=== PATIENT | female | born 1985 | race American Indian/Alaskan Native ===

== ENCOUNTER 2020-10-24 10:32 | Outpatient (CLI) | payer OTHER ==
--- NOTE | 2020-10-24 13:59 | Fluoroscopy Report ---
UPPER GI HISTORY: FUNCTIONAL DYSPEPSIA. TECHNIQUE: Single and double contrast barium technique utilized to evaluate the esophagus, stomach, and duodenal C-loop. FINDINGS: To begin the exam, swallowing was evaluated in the lateral position under direct fluorosco py. Swallowing was normal. No mucosal irregularity, mass, mass effect, or critical stenosis. There were no abnormal tertiary c ontractions as seen with dysmotility. One episode of gastroesophageal reflux to the proximal esophagu s was witnessed during this exam. IMPRESSION: Mild gastroesophageal reflux was witnessed. No mucosal abnormality. Normal anatomy. Fluoroscopic time: 3.3 minutes Number of fluoroscopic images: 19 Signer Name: Scar Corley Jr, MD Signed: 10/24/2020 1:55 PM Workstation Name: [id number]
== END 2020-10-24 10:33 | disposition home or self-care (01) ==
LOC: FLUORO 10:32
PROVIDERS: ATTEND Surgery
DX: K21.9 Gastro-esophageal reflux disease without esophagitis (principal)
CPT/HCPCS: 74246

== ENCOUNTER 2020-11-13 09:46 | Outpatient (CLI) | payer OTHER ==
[2020-11-13 10:15] LABS: Basophils % (Auto) 0.4 % (0.0-1.8); Eosinophils # (Auto) 0.1 K/mm3 (0.0-0.4); Eosinophils % (Auto) 1.8 % (0.0-4.3); Hematocrit 36.6 % (30.3-42.9); Lymphocytes % (Auto) 42.8 % (13.4-35.0); Mean Corpuscular HGB Conc 33 % (30-34); Mean Corpuscular Volume 79 fl (79-97); Monocytes # (Auto) 0.4 K/mm3 (0.0-0.8); Monocytes % (Auto) 7.5 % (0.0-7.3); Platelet Count 287 K/mm3 (140-440); Red Blood Count 4.62 M/mm3 (3.65-5.03)
[2020-11-13 10:42] LABS: Alanine Aminotransferase 9 units/L (7-56); Blood Urea Nitrogen 6 mg/dL (7-17); Calcium 8.8 mg/dL (8.4-10.2); HDL Cholesterol 44 mg/dL (40-59); Hemolysis Index 0; Iron 33 ug/dL (37-170); LDL Cholesterol,Direct 97 mg/dL (50-130); Total Iron Binding Capacity 328 mcg/dL (250-450)
[2020-11-13 11:05] LABS: BUN/Creatinine Ratio 10
== END 2020-11-13 09:47 | disposition home or self-care (01) ==
LOC: LAB 09:46
PROVIDERS: ATTEND Surgery
DX: E66.01 Morbid (severe) obesity due to excess calories (principal); K30 Functional dyspepsia; E11.9 Type 2 diabetes mellitus without complications
CPT/HCPCS: 36415; 80053; 80061; 82607; 82728; 83036; 83550; 84443; 85025

== ENCOUNTER 2020-12-10 08:14 | Outpatient (CLI) | payer OTHER ==
--- NOTE | 2020-12-11 02:43 | Treadmill Report ---
TREADMILL STRESS TEST REFERRING PHYSICIAN: Gladys Nielsen MD PROTOCOL: The patient was brought to the stress lab in a postabsorptive state as elective outpatient. Baseline blood pressure is 125/64. Baseline heart rate is 80. The patient exercised on a standard Edgard protocol to achieve 7-1/2 minutes and a peak heart rate of 162. Baseline EKG reveals normal sinus rhythm, normal axis, no acute ST segment shifts. There were no diagnostic ST changes, arrhythmias or chest pain noted during stress or recovery. Peak blood pressure is 160/80. No symptoms during recovery. CONCLUSIONS: 1. Normal exercise stress test without evidence of diagnostic ST changes, arrhythmias or chest pain during stress or recovery. Average exercise tolerance. 2. Appropriate heart rate/blood pressure response in recovery. JOB# [id number]
== END 2020-12-10 08:15 | disposition home or self-care (01) ==
LOC: CARD 08:14
PROVIDERS: ATTEND Surgery
DX: E66.01 Morbid (severe) obesity due to excess calories (principal)
CPT/HCPCS: 93005; 93017

== ENCOUNTER 2020-12-30 08:07 | Day surgery (SDC) | payer OTHER ==
[~2020-12-30 08:07] MED LIST: SODIUM CHLORIDE 0.9% 1000 ML 1,000 ML IV SCH
--- NOTE | 2020-12-30 08:45 | Discharge Summary ---
Providers - Providers Date of Admission: 12/30/2020 Date of discharge: 12/30/20 Attending physician: MADDIE BUSTOS MD Primary care physician: LEANNA CA Hospitalization Reason for admission: egd for pre-op bariatruc surgery Condition: Good Procedures: egd w/ bx Hospital course: Pt presented for a pre-op EGD as part of planning for up coming bariatric surgery. Procedure was uneventful and pt recovered well and was discharged to home. Disposition: DC- TO HOME OR SELFCARE Final Discharge Diagnosis (Prints w/discharge instructions): morbid obesity, dyspepsia Core Measure Documentation - Palliative Care Palliative Care/ Comfort Measures: Not Applicable - Core Measures Any of the following diagnoses?: none Exam - Physical Exam Narrative exam: unchanged from pre-op Plan Diet: low carbohydrate Follow up with: LEANNA CA MD [Primary Care Provider] - 7 Days
--- NOTE | 2020-12-30 08:46 | Operative Report ---
Operative Report Operative Report: DATE: 12/30/2020 SURGERY: Upper endoscopy. SURGEON: Gladys Nielsen M.D. PROCEDURE: EGD with biopsy PRE OP DX: morbid obesity, GERD POST OP DX: morbid obesity, GERD, gastritis TYPE OF ANESTHESIA: MAC. ESTIMATED BLOOD LOSS: None. COMPLICATIONS: None. SPECIMENS REMOVED: antral biopsy FINDINGS: 1. Small hiatal hernia. 2. gastritis INDICATIONS:INDICATION FOR PROCEDURE: Patient is a 35-year-old female with a long history of morbid obesity. She is planned to have a weight loss procedure and is here for preoperative planning EGD. PROCEDURE DETAILS: After consent was reviewed, patient was taken back to the operating room where patient was placed in the left lateral decubitus position and a bite block was placed in the mouth. After a time-out was called, MAC anesthesia was initiated. I then passed the endoscope into her oropharynx, into her esophagus, visualized the entire esophagus, which was all within normal limits. Z-line was noted to about 35 cm from incisors. I then visualized the stomach and the first portion of the duodenum and there were no abnormalities I could clearly visualize except for antral gastritis. A cold forceps biopsy of the antrum was taken and will be sent to pathology to evaluate for H.pylori. I then retroflexed the scope in the stomach and visualized the hiatus and I could see a small hiatal hernia. I then desufflated the stomach and removed the endoscope. Patient tolerated procedure well and was transferred to recovery room in good and stable condition.
--- NOTE | 2020-12-30 09:12 | Anesthesia Day of Surgery ---
Anesthesia Day of Surgery - Day of Surgery Patient Examined: Yes Patient H&P Reviewed: Yes Patient is NPO: Yes
--- NOTE | 2020-12-30 09:13 | Anesthesia Consultation ---
Anesthesia Consult and Med Hx Date of service: 12/30/20 - Airway Anesthetic Teeth Evaluation: Good ROM Head & Neck: Adequate Mental/Hyoid Distance: Adequate Mallampati Class: Class II Intubation Access Assessment: Good - Pre-Operative Health Status ASA Pre-Surgery Classification: ASA3 Proposed Anesthetic Plan: MAC - Pulmonary Hx Respiratory Symptoms: No - Cardiovascular System Hx Hypertension: No (Pt reports negative cardiac workup) - Gastrointestinal Hx Gastroesophageal Reflux Disease: Yes - Endocrine Hx Renal Disease: No Hx Non-Insulin Dependent Diabetes: Yes - Hematic Hx Sickle Cell Disease: No - Other Systems Hx Obesity: Yes
[2020-12-30] MEDS ORDERED: LIDOCAINE MPF (2%) 20 MG/1 ML VIAL 5 ML ONE (09:20)
[2020-12-30] MEDS ORDERED: ONDANSETRON 4 MG/2 ML INJ ONE (09:20)
[2020-12-30] MEDS ORDERED: fentaNYL 100 MCG/2 ML INJ ONE (09:21)
[2020-12-30] MEDS ORDERED: propofoL 200 MG/20 ML VIAL IV ONE (09:21)
[2020-12-30 10:50] VITALS: BP 129/76
--- NOTE | 2020-12-30 15:03 | Post Anesthesia Evaluation ---
- Post Anesthesia Evaluation Patient Participated: Yes Airway Patent: Yes Stable Respiratory Function: Yes Nausea/Vomiting: No Temp > 96.8F: Yes Pain Manageable: Yes Adequeate Hydration: Yes Anesthesia Complications: No Block Receding Appropriately: Not Applicable Patient on Ventilator: No
== END 2020-12-30 08:08 | disposition home or self-care (01) ==
LOC: GIO 08:07
PROVIDERS: ATTEND Surgery
DX: K21.9 Gastro-esophageal reflux disease without esophagitis (principal); E66.01 Morbid (severe) obesity due to excess calories; K29.50 Unspecified chronic gastritis without bleeding; E11.9 Type 2 diabetes mellitus without complications; F32.9 Major depressive disorder, single episode, unspecified; K44.9 Diaphragmatic hernia without obstruction or gangrene; Z88.8 Allergy status to other drugs, medicaments and biological substances; Z68.42 Body mass index [BMI] 45.0-49.9, adult; Z79.84 Long term (current) use of oral hypoglycemic drugs; Z79.899 Other long term (current) drug therapy
CPT/HCPCS: 43239; 81025; 82962; 88305; 88342; J2405; J2704; J3010; J7030

== ENCOUNTER 2021-01-05 08:14 | Outpatient (CLI) | payer OTHER | END 2021-01-05 08:15 | disposition home or self-care (01) | LOC: PF 08:14 | PROVIDERS: ATTEND Surgery | DX: E66.01 Morbid (severe) obesity due to excess calories (principal) | CPT/HCPCS: 94010 ==

== ENCOUNTER 2021-04-06 07:05 | Inpatient (IN) | payer OTHER ==
[2021-04-01 10:03] LABS: Hematocrit 35.7 % (30.3-42.9); Hemoglobin 11.6 gm/dl (10.1-14.3); Mean Corpuscular HGB Conc 33 % (30-34); Mean Corpuscular Volume 78 fl (79-97); Platelet Count 321 K/mm3 (140-440); Red Blood Count 4.55 M/mm3 (3.65-5.03); Red Cell Distribution Width 15.2 % (13.2-15.2)
--- NOTE | 2021-04-01 10:23 | Anesthesia Consultation ---
Anesthesia Consult and Med Hx Date of service: 04/06/21 - Airway Anesthetic Teeth Evaluation: Good ROM Head & Neck: Adequate Mental/Hyoid Distance: Adequate Mallampati Class: Class II Intubation Access Assessment: Probably Good - Pulmonary Exam CTA: Yes - Cardiac Exam Cardiac Exam: RRR - Pre-Operative Health Status ASA Pre-Surgery Classification: ASA3 Proposed Anesthetic Plan: General - Pulmonary Hx Smoking: No Hx Respiratory Symptoms: No (normal PFTs) Hx Sleep Apnea: Yes (no CPAP) - Cardiovascular System Hx Hypertension: No Hx Heart Attack/AMI: No (negative stress test) Hx Percutaneous Transluminal Coronary Angioplasty (PTCA): No Hx Cardia Arrhythmia: No (sinux pramod on EKG) - Central Nervous System CVA: No - Gastrointestinal Hx Gastroesophageal Reflux Disease: Yes (per EGD report; patient denies symptoms) - Endocrine Hx Renal Disease: No Hx Liver Disease: No Hx Insulin Dependent Diabetes: No Hx Non-Insulin Dependent Diabetes: No (pre-DM) Hx Thyroid Disease: No - Other Systems Hx Obesity: Yes (BMI 45) - Additional Comments Anesthesia Medical History Comments: No hx anesthetic complications.
[2021-04-01 10:28] LABS: Alanine Aminotransferase 10 units/L (7-56); Blood Urea Nitrogen 7 mg/dL (7-17); Calcium 9.3 mg/dL (8.4-10.2); Hemolysis Index 0
[2021-04-01 11:07] LABS: BUN/Creatinine Ratio 12
[~2021-04-06 07:05] MED LIST changes: +ACETAMINOPHEN IV 1,000 MG/100 ML BOTTLE IV NR; +GABAPENTIN 500 MG/10 ML ORAL LIQD PO NR; +LACTATED RINGERS 1,000 ML IV SCH; +MIDAZOLAM 2 MG/2 ML INJ IV NR; +SCOPOLAMINE TRANSDERMAL PATCH 72 HR TD NR; -SODIUM CHLORIDE 0.9% 1000 ML 1,000 ML IV SCH
--- NOTE | 2021-04-06 07:05 | Anesthesia Day of Surgery ---
Anesthesia Day of Surgery - Day of Surgery Patient Examined: Yes Patient H&P Reviewed: Yes Patient is NPO: Yes
[2021-04-06] MEDS ORDERED: MAGNESIUM SULFATE 2 GM/50 ML BAG IV ONE (07:12)
[2021-04-06] MEDS ORDERED: KETOROLAC 30 MG/1 ML INJ ONE (07:15)
[2021-04-06] MEDS ORDERED: ONDANSETRON 4 MG/2 ML INJ ONE (07:15)
[2021-04-06] MEDS ORDERED: dexAMETHasone 20 MG/5 ML VIAL ONE (07:15)
[2021-04-06] MEDS ORDERED: ROCURONIUM 50 MG/5 ML INJ IV ONE (07:15)
[2021-04-06] MEDS ORDERED: KETAMINE/STERILE WATER 50 MG/ML SYRINGE ONE (07:15)
[2021-04-06] MEDS ORDERED: ePHEDrine SULFATE 50 MG/1 ML INJ ONE (07:30)
[2021-04-06] MEDS ORDERED: ENOXAPARIN 40 MG/0.4 ML INJ SUB-Q NR (08:00)
[2021-04-06] MEDS ORDERED: SCOPOLAMINE TRANSDERMAL PATCH 72 HR TD SCH (08:00)
[2021-04-06] MEDS ORDERED: metroNIDAZOLE/NS 500 MG/100 ML 500 MG/100 ML BAG IV NR (08:00)
[2021-04-06] MEDS ORDERED: MIDAZOLAM 2 MG/2 ML INJ ONE (08:18)
[2021-04-06] MEDS ORDERED: ONDANSETRON 4 MG/2 ML INJ IV PRN ×2 (08:22→14:01)
[2021-04-06] MEDS ORDERED: HYDROmorphone 1 MG/1 ML INJ IV PRN (08:22)
[2021-04-06] MEDS ORDERED: propofoL 200 MG/20 ML VIAL IV ONE ×4 (08:58→10:22)
[2021-04-06] MEDS ORDERED: SUGAMMADEX SODIUM 200 MG/2 ML VIAL IV ONE (13:00)
[2021-04-06] MEDS ORDERED: BUPIVACAINE/PF (0.25%) 2.5 MG/ML 30 ML VIAL INFILTRATI ONE (13:01)
[2021-04-06] MEDS ORDERED: LIDOCAINE (1%) 10 MG/1 ML VIAL 20 ML MDV INFILTRATI ONE (13:02)
[2021-04-06] MEDS ORDERED: SODIUM CHLORIDE 0.9% IRR 1,500 ML BOTTLE IR ONE (13:02)
[2021-04-06] MEDS ORDERED: METOCLOPRAMIDE 10 MG/2 ML INJ IV PRN (14:01)
[2021-04-06] MEDS ORDERED: MORPHINE 2 MG/1 ML INJ IV PRN (14:01)
[2021-04-06] MEDS ORDERED: hydrALAZINE 20 MG/1 ML INJ IV PRN (14:01)
--- NOTE | 2021-04-06 14:01 | Operative Report ---
Operative Report Operative Report: DATE:04/06/2021 Surgeon: Gladys Nielsen MD Help Desk Intern surgeon:Steven Santiago CSA MD Pre-op Dx: morbid obesity Post-op Dx: morbid obesity Procedure: 1. laparoscopic sleeve gastrectomy, 2. hiatal hernia repair Anesthesia: GETA and TAP block EBL: <10ml Specimen: gastric remnant Complication: none immediate Indication: 35 year old female with a history of morbid obesity . Pt is here for sleeve gastrectomy for weight loss to achieve healthier weight and improve or resolve his co-morbidities. shee expressed understanding of the risks and benefits. PROCEDURE IN DETAIL: After consent was reviewed, patient was taken back to the operating room, where patient was placed supine on the bed with both arms out. The patient's legs were doubly strapped to the bed. Patient had a foot board in place. Patient had a body warmer placed by anesthesia. General anesthesia was induced with successful endotracheal intubation. Patient was then prepped and draped in normal sterile surgical fashion. After a time-out was called, I made a stab incision in the left subcostal area and placed a Veress needle through this incision and insufflated the abdomen to 18 mmHg pressure. I then counted down a handsbreadth below the xiphoid process in the midline and slightly left lateral injected local anesthetic and made about 1 cm transverse incision. I then used a 5-mm Optiview trocar to enter into the abdomen. There was no gross injury to any intra-abdominal structures. I then placed a 30-degree scope through this port and inspected the abdomen. I then placed a 8-mm port in the right upper quadrant, and 1 5mm in the epigastric area below the costovertebral angle. I then placed a 15-mm port about a handsbreadth in the right mid abdomen. After which a 5mm port was placed in left upper quadrant port along the anterior axillary line in a similar fashion. A liver retractor was placed to the epigastric port to elevate the left lateral lobe and liver. There was a small hiatal hernia appreciated that was accentuated with right and left crural dissection. A small Hiatal hernia sac was dissected from the crura until the GE junction was resting about 2cm below the level of the diaphragm without tension. An anterior crura-plasty was preformed via a U-stitch using surgidac suture. The anterior gastric fat pad was excised. Starting approximately 6 cm proximal to the pylorus, using am Enseal device the short gastrics were taken all the way to the left kevin. Once the lateral portion of the stomach was mobile anesthesia passed a 40 Macedonian bougie along the medial aspect to act as a stent. Using serial firings of endoscopic stapler to green, followed by, gold and 4 blue, the lateral portion of the stomach was transected making sure to did not close to the 2 cm to the incisura. All staple loads were supported with Ethicon buttress strips. The sleeve stomach was seen to be without kink obstruction or twisting. The pressure was decreased to 10 mmHg. The staple line was inspected for approximately 5 minutes. There was no significant bleeding appreciated except for a slight loose at the most distal portion of the staple line. Bleeding was minimal and easily controlled with minimal cautery. Tisseel was then sprayed along the entirety of the staple line. The liver retractor was removed. A TAP block was performed with 60ml of 0.25% marcaine along bilateral mid axillary lines starting from the subcostal region to just below the level of the umbilicus This was after the gastric remnant was grasped and pulled into the 15 mm trocar site. The stomach was extracted via the 15 mm trocar site. After the fascia had to be stretched with a Jennifer clamp to easily remove the stomach, the fascia was closed using a breanna cristina device at the level of the fascia with an 0 PDS. trocars were removed under direct visualization. All skin incisions were closed with 4-0 Monocryl followed by Dermabond. Patient was awoken, extubated, and taken to recovery stable condition. All counts were correct.
[2021-04-06] MEDS ORDERED: LACTATED RINGERS 1,000 ML IV SCH (14:15)
[2021-04-06] MEDS ORDERED: PANTOPRAZOLE 40 MG INJ IV SCH (15:00)
[2021-04-06] MEDS: HYDROmorphone 1 MG/1 ML INJ IV PRN ×3 (15:07→20:18)
[2021-04-06] MEDS: KETOROLAC 30 MG/1 ML INJ IV SCH ×2 (16:00→22:26)
[2021-04-06] MEDS: metroNIDAZOLE/NS 500 MG/100 ML 500 MG/100 ML BAG IV SCH ×2 (16:00→23:00)
[2021-04-06] MEDS: ACETAMINOPHEN IV 1,000 MG/100 ML BOTTLE IV SCH ×2 (17:48→23:30)
[2021-04-07] MEDS: HYDROmorphone 1 MG/1 ML INJ IV PRN ×4 (00:07→20:30)
[2021-04-07] MEDS: KETOROLAC 30 MG/1 ML INJ IV SCH ×3 (04:12→17:34)
[2021-04-07 05:35] LABS: Basophils % (Auto) 0.1 % (0.0-1.8); Hemoglobin 9.7 gm/dl (10.1-14.3); Lymphocytes # (Auto) 1.3 K/mm3 (1.2-5.4); Lymphocytes % (Auto) 13.8 % (13.4-35.0); Mean Corpuscular HGB Conc 34 % (30-34); Mean Corpuscular Volume 78 fl (79-97); Monocytes # (Auto) 0.6 K/mm3 (0.0-0.8); Monocytes % (Auto) 6.4 % (0.0-7.3); Platelet Count 288 K/mm3 (140-440); Red Blood Count 3.74 M/mm3 (3.65-5.03); Red Cell Distribution Width 15.2 % (13.2-15.2)
[2021-04-07 05:53] LABS: Alanine Aminotransferase 8 units/L (7-56); Albumin 3.6 g/dL (3.9-5); Blood Urea Nitrogen 4 mg/dL (7-17); Calcium 8.7 mg/dL (8.4-10.2); Hemolysis Index 1
[2021-04-07] MEDS: ACETAMINOPHEN IV 1,000 MG/100 ML BOTTLE IV SCH ×2 (05:54→10:36)
[2021-04-07 05:58] LABS: BUN/Creatinine Ratio 8
[2021-04-07] MEDS: SIMETHICONE 80 MG CHEW TAB PO PRN ×3 (06:01→20:30)
[2021-04-07] MEDS: metroNIDAZOLE/NS 500 MG/100 ML 500 MG/100 ML BAG IV SCH (07:07)
[2021-04-07] MEDS ORDERED: ENOXAPARIN 40 MG/0.4 ML INJ SUB-Q SCH (10:00)
[2021-04-07] MEDS: HYDROcodone/Acetaminophen 7.5-325MG-15ML ORAL LIQD PO PRN (14:24)
--- NOTE | 2021-04-07 15:26 | Progress Note ---
Assessment and Plan POD#1 s/p lap gastric sleeve with hiatal hernia repair. Afebrile and stable with low oral intake. If she does no take in enough fluids she is at a high risk of becoming dehydrated after discharge. Will keep overnight and encourage more frequent sips. Hopefully can discharge tomorrow. Subjective Date of service: 04/07/21 Narrative: No acute events overnight. Pt says that she is not drinking as much as she should because she has significant discomfort when she swallows. She denies nausea or vomiting. Her pain is pretty well controlled and she is ambulating. Objective Vital Signs - 12hr 04/07/21 04/07/21 04/07/21 05:11 08:40 09:47 Temperature 98.3 F 97.8 F Pulse Rate 66 55 L Respiratory 18 16 Rate Blood Pressure 130/79 124/67 O2 Sat by Pulse 100 100 98 Oximetry 04/07/21 11:13 Temperature 98.4 F Pulse Rate 52 L Respiratory 18 Rate Blood Pressure 132/53 O2 Sat by Pulse 100 Oximetry - General physical appearance well developed, moderate pain, obese - Respiratory normal expansion, normal respiratory effort - Abdomen soft, other (appropriately tender to palpation, incisions c/d/i) - Labs 04/07/21 04:43 04/07/21 04:43 Diabetes panel 04/07/21 Range/Units 04:43 Sodium 139 (137-145) mmol/L Potassium 3.6 (3.6-5.0) mmol/L Chloride 103.2 (98-107) mmol/L Carbon Dioxide 26 (22-30) mmol/L BUN 4 L (7-17) mg/dL Creatinine 0.5 L (0.6-1.2) mg/dL Glucose 111 H (65-100) mg/dL Calcium 8.7 (8.4-10.2) mg/dL AST 15 (5-40) units/L ALT 8 (7-56) units/L Alkaline Phosphatase 42 (35-129) units/L Total Protein 6.6 (6.3-8.2) g/dL Albumin 3.6 L (3.9-5) g/dL Calcium panel 04/07/21 Range/Units 04:43 Calcium 8.7 (8.4-10.2) mg/dL Albumin 3.6 L (3.9-5) g/dL Pituitary panel 04/07/21 Range/Units 04:43 Sodium 139 (137-145) mmol/L Potassium 3.6 (3.6-5.0) mmol/L Chloride 103.2 (98-107) mmol/L Carbon Dioxide 26 (22-30) mmol/L BUN 4 L (7-17) mg/dL Creatinine 0.5 L (0.6-1.2) mg/dL Glucose 111 H (65-100) mg/dL Calcium 8.7 (8.4-10.2) mg/dL Adrenal panel 04/07/21 Range/Units 04:43 Sodium 139 (137-145) mmol/L Potassium 3.6 (3.6-5.0) mmol/L Chloride 103.2 (98-107) mmol/L Carbon Dioxide 26 (22-30) mmol/L BUN 4 L (7-17) mg/dL Creatinine 0.5 L (0.6-1.2) mg/dL Glucose 111 H (65-100) mg/dL Calcium 8.7 (8.4-10.2) mg/dL Total Bilirubin 0.50 (0.1-1.2) mg/dL AST 15 (5-40) units/L ALT 8 (7-56) units/L Alkaline Phosphatase 42 (35-129) units/L Total Protein 6.6 (6.3-8.2) g/dL Albumin 3.6 L (3.9-5) g/dL
[2021-04-08] MEDS: HYDROcodone/Acetaminophen 7.5-325MG-15ML ORAL LIQD PO PRN ×3 (01:30→14:54)
[2021-04-08 07:15] LABS: Basophils % (Auto) 0.3 % (0.0-1.8); Eosinophils % (Auto) 0.1 % (0.0-4.3); Hematocrit 26.2 % (30.3-42.9); Hemoglobin 8.6 gm/dl (10.1-14.3); Lymphocytes % (Auto) 30.3 % (13.4-35.0); Mean Corpuscular HGB Conc 33 % (30-34); Mean Corpuscular Volume 78 fl (79-97); Monocytes # (Auto) 0.5 K/mm3 (0.0-0.8); Monocytes % (Auto) 7.2 % (0.0-7.3); Platelet Count 225 K/mm3 (140-440); Red Blood Count 3.37 M/mm3 (3.65-5.03); Red Cell Distribution Width 15.3 % (13.2-15.2)
[2021-04-08 07:36] LABS: Alanine Aminotransferase 7 units/L (7-56); Albumin 3.2 g/dL (3.9-5); Blood Urea Nitrogen 4 mg/dL (7-17); Calcium 8.2 mg/dL (8.4-10.2); Hemolysis Index 26
[2021-04-08 07:43] LABS: BUN/Creatinine Ratio 8
[2021-04-08] MEDS: SIMETHICONE 80 MG CHEW TAB PO PRN (09:52)
--- NOTE | 2021-04-08 11:46 | Discharge Summary ---
Providers - Providers Date of Admission: 04/06/21 07:05 Date of discharge: 04/08/21 Attending physician: MADDIE BUSTOS MD 04/06/21 14:01 Physical Therapy Evaluation and Treat [CONS] Routine Comment: Reason For Exam: post op bariatric surgery Primary care physician: LEANNA CA Hospitalization Reason for admission: Observation status post laparoscopic sleeve gastrectomy with HHR Condition: Good Procedures: Laparoscopic sleeve gastrectomy with hiatal hernia repair Hospital course: Patient had an uneventful course status post laparoscopic sleeve gastrectomy with hiatal hernia. Patient remained afebrile and stable with good pain control. Patient was observed an extra night due to discomfort when she was drinking her liquids that limited her oral intake and put her at high risk for dehydration once discharge. Patient says that it has improved and she is taken at least 30 ounces of fluid by mouth. She was discharged to home with no clinical signs of leak. Disposition: DC- TO HOME OR SELFCARE Final Discharge Diagnosis (Prints w/discharge instructions): Morbid obesity Core Measure Documentation - Palliative Care Palliative Care/ Comfort Measures: Not Applicable - Core Measures Any of the following diagnoses?: none Exam - Constitutional Vitals: Temp Pulse Resp BP Pulse Ox 98.4 F 60 18 137/68 97 04/08/21 08:02 04/08/21 08:02 04/08/21 08:02 04/08/21 08:02 04/08/21 08:02 General appearance: Present: no acute distress, obese - Respiratory Respiratory effort: normal - Cardiovascular Heart Sounds: Present: S1 & S2 - Extremities Extremities: no ischemia - Abdominal General gastrointestinal: Present: soft, other (Appropriately tender to palpation, incisions clean dry and intact) Plan Activity: advance as tolerated Diet: clear liquids Wound: open to air, keep clean and dry Special Instructions: no heavy lifting Follow up with: LEANNA CA MD [Primary Care Provider] - 7 Days
[2021-04-08 11:53] VITALS: BP 149/79
== END 2021-04-08 15:15 | disposition home or self-care (01) | DRG 621 ==
LOC: 3A 07:05 → 3B-SURG 20:02
PROVIDERS: ADMIT Surgery; ATTEND Surgery
PROC: 0DB64Z3 Excision of Stomach, Percutaneous Endoscopic Approach, Vertical (ICD-10-PCS; principal; 2021-04-06)
PROC: 0BQT4ZZ Repair Diaphragm, Percutaneous Endoscopic Approach (ICD-10-PCS; 2021-04-06)
DX: E66.01 Morbid (severe) obesity due to excess calories (principal); K44.9 Diaphragmatic hernia without obstruction or gangrene; G47.30 Sleep apnea, unspecified; K21.9 Gastro-esophageal reflux disease without esophagitis; Z68.42 Body mass index [BMI] 45.0-49.9, adult
CPT/HCPCS: 36415; 80053; 82962; 84703; 85025; 85027; 88307; 88342; G0378; C9113; C9250; J0131; J1100; J1170; J1650; J1885; J2250; J2405; J2704; J2765; J3475; J3490; J7120; U0003

== ENCOUNTER 2021-05-01 09:32 | Outpatient (CLI) | payer OTHER ==
[2021-05-01 10:10] LABS: Basophils % (Auto) 0.6 % (0.0-1.8); Eosinophils # (Auto) 0.1 K/mm3 (0.0-0.4); Eosinophils % (Auto) 1.5 % (0.0-4.3); Hematocrit 31.8 % (30.3-42.9); Hemoglobin 10.7 gm/dl (10.1-14.3); Lymphocytes # (Auto) 1.8 K/mm3 (1.2-5.4); Lymphocytes % (Auto) 41.7 % (13.4-35.0); Mean Corpuscular HGB Conc 34 % (30-34); Mean Corpuscular Volume 77 fl (79-97); Monocytes # (Auto) 0.3 K/mm3 (0.0-0.8); Monocytes % (Auto) 6.9 % (0.0-7.3); Platelet Count 351 K/mm3 (140-440); Red Blood Count 4.16 M/mm3 (3.65-5.03); Red Cell Distribution Width 15.5 % (13.2-15.2)
[2021-05-01 10:46] LABS: % Iron Saturation 9.48 %; Alanine Aminotransferase 7 units/L (7-56); Blood Urea Nitrogen 6 mg/dL (7-17); Calcium 9.5 mg/dL (8.4-10.2); Chol/HDL Ratio 2.95 %; HDL Cholesterol 46 mg/dL (40-59); Hemolysis Index 1; Iron 31 ug/dL (37-170); LDL Cholesterol,Direct 92 mg/dL (50-130); Total Iron Binding Capacity 327 mcg/dL (250-450)
[2021-05-01 10:47] LABS: BUN/Creatinine Ratio 10
[2021-05-06 11:59] LABS: Vitamin D, 25-OH, D2 <4 ng/mL
== END 2021-05-01 09:33 | disposition home or self-care (01) ==
LOC: LAB 09:32
PROVIDERS: ATTEND Surgery
DX: E66.01 Morbid (severe) obesity due to excess calories (principal); E11.9 Type 2 diabetes mellitus without complications; K90.9 Intestinal malabsorption, unspecified; E55.9 Vitamin D deficiency, unspecified; K30 Functional dyspepsia; Z98.84 Bariatric surgery status
CPT/HCPCS: 36415; 80053; 80061; 82306; 82607; 82728; 83036; 83550; 83970; 84425; 84443; 85025

== ENCOUNTER 2022-05-05 11:23 | Outpatient (CLI) | payer OTHER ==
[2022-05-05 12:33] LABS: Basophils % (Auto) 0.6 % (0.0-1.8); Eosinophils # (Auto) 0.1 K/mm3 (0.0-0.4); Hematocrit 26.3 % (30.3-42.9); Lymphocytes # (Auto) 1.9 K/mm3 (1.2-5.4); Lymphocytes % (Auto) 36.9 % (13.4-35.0); Mean Corpuscular HGB Conc 30 % (30-34); Monocytes # (Auto) 0.4 K/mm3 (0.0-0.8); Monocytes % (Auto) 7.1 % (0.0-7.3); Platelet Count 375 K/mm3 (140-440); Red Blood Count 4.16 M/mm3 (3.65-5.03); Red Cell Distribution Width 19.5 % (13.2-15.2)
[2022-05-05 12:56] LABS: Mean Corpuscular Volume 63 fl (79-97)
[2022-05-05 13:10] LABS: % Iron Saturation 5.01 %; Alanine Aminotransferase 6 units/L (7-56); Albumin 4.4 g/dL (3.9-5); Blood Urea Nitrogen 9 mg/dL (7-17); Chol/HDL Ratio 2.39 %; HDL Cholesterol 58 mg/dL (40-59); Hemolysis Index 3; Iron 21 ug/dL (37-170); LDL Cholesterol,Direct 77 mg/dL (50-130); Total Iron Binding Capacity 419 mcg/dL (250-450)
[2022-05-05 13:12] LABS: BUN/Creatinine Ratio 15
== END 2022-05-05 11:24 | disposition home or self-care (01) ==
LOC: LAB 11:23
PROVIDERS: ATTEND Surgery
DX: Z13.29 Encounter for screening for other suspected endocrine disorder (principal); Z13.21 Encounter for screening for nutritional disorder; E55.9 Vitamin D deficiency, unspecified; E11.9 Type 2 diabetes mellitus without complications; K30 Functional dyspepsia; K90.9 Intestinal malabsorption, unspecified; E66.01 Morbid (severe) obesity due to excess calories; Z98.84 Bariatric surgery status
CPT/HCPCS: 36415; 80053; 80061; 82607; 82728; 83036; 83550; 83970; 84425; 84443; 85025